=== PATIENT | female | born 1990 | race Caucasian/White ===

== ENCOUNTER 2016-11-15 22:30 | Observation (INO) | payer OTHER ==
[~2016-11-15] VITALS: Ht 165.1 cm; Wt 116.5 kg
[2016-11-15 22:40] VITALS: BP 156/77; PULSE 104; RESP 20; TEMP 97.9; O2SAT 100
[2016-11-15 22:58] VITALS: O2SAT 100
[2016-11-15] MEDS ORDERED: SODIUM CHLORIDE 0.9% FLUSH 5 ML FLUSH IVF PRN (23:00)
[2016-11-15] MEDS ORDERED: ONDANSETRON HCL 4 MG/2 ML VIAL IVP ONE (23:00)
[2016-11-15] MEDS ORDERED: MORPHINE SULFATE 4 MG/ML INJ IV ONE (23:00)
[2016-11-15 23:22] LABS: AUTOMATED NEUTROPHIL # 11.7 TH/MM3 (1.8-7.7); BASOPHIL # 0.1 TH/MM3 (0-0.2); BASOPHIL % 0.8 % (0.0-2.0); EOSINOPHIL # 0.1 TH/MM3 (0-0.4); EOSINOPHIL % 0.5 % (0.0-4.0); HEMATOCRIT 38.1 % (35.0-46.0); HEMO FLAGS DIFF FINAL; LYMPH % 8.8 % (9.0-44.0); LYMPHOCYTE # 1.2 TH/MM3 (1.0-4.8); MEAN CELL VOLUME 82.4 FL (80.0-100.0); MEAN CORPUSCULAR HGB CONC 32.8 % (32.0-36.0); MONO % 6.6 % (0.0-8.0); NEUT % 83.3 % (16.0-70.0); PLATELET COUNT 360 TH/MM3 (150-450); RED BLOOD COUNT 4.63 MIL/MM3 (4.00-5.30); RED CELL DISTRIBUTION WIDTH 14.9 % (11.6-17.2); WHITE BLOOD COUNT 14.1 TH/MM3 (4.0-11.0)
[2016-11-15] MEDS ORDERED: IOHEXOL 350 MG/ML 10 ML VIAL (for RAD DIAG) IV ONE (23:44)
[2016-11-15 23:49] LABS: ANION GAP 10 MEQ/L (5-15)
[2016-11-15 23:52] LABS: ALKALINE PHOSPHATASE 69 U/L (45-117); ALT (GPT) 28 U/L (10-53); AST (GOT) 20 U/L (15-37); BLOOD UREA NITROGEN 10 MG/DL (7-18); CHLORIDE 103 MEQ/L (98-107); GLOMERULAR FILTRATION RATE 68 ML/MIN (>89); POTASSIUM 3.7 MEQ/L (3.5-5.1); SODIUM (NA) 137 MEQ/L (136-145); TOTAL BILIRUBIN ADULT 0.3 MG/DL (0.2-1.0)
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
[2016-11-16] MEDS ORDERED: HYDROmorphone HCL PF 1 MG/ML VIAL IV PUSH ONE (01:15)
[2016-11-16 01:30] VITALS: BP 111/60; PULSE 108; RESP 16; O2SAT 96
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
[2016-11-16] MEDS ORDERED: SODIUM CHLORIDE 0.9% FLUSH 5 ML FLUSH IVF PRN (01:45)
[2016-11-16] MEDS ORDERED: MAGNESIUM HYDROXIDE SUSP 30 ML CUP PO PRN (01:45)
[2016-11-16] MEDS ORDERED: ACETAMINOPHEN 325 MG TAB PO PRN (01:45)
[2016-11-16] MEDS ORDERED: CHLORHEXIDINE GLUCONATE 2 % 1 PACK (2 CLOTHS) TOP PRN (01:45)
[2016-11-16] MEDS ORDERED: KETOROLAC TROMETHAMINE 30 MG/ML (IVP) VIAL IVP SCH (01:45)
[2016-11-16] MEDS ORDERED: MISCELLANEOUS NURSING INFORMATION XX SCH (01:45)
[2016-11-16] MEDS: HYDROmorphone HCL PF 1 MG/ML VIAL IVP PRN ×3 (02:52→16:00)
[2016-11-16] MEDS: ENOXAPARIN SODIUM 30 MG/0.3 ML SYRINGE SQ SCH ×2 (02:53→14:28)
[2016-11-16 03:00] VITALS: BP 125/73; PULSE 106; RESP 16; TEMP 97.8; O2SAT 97
[2016-11-16] MEDS: CHLORHEXIDINE GLUCONATE 2 % 1 PACK (2 CLOTHS) TOP SCH (04:00)
[2016-11-16] MEDS: DIAZEPAM 2 MG TAB PO SCH ×3 (04:41→20:46)
[2016-11-16] MEDS: IBUPROFEN 800 MG TAB PO SCH ×4 (06:00→23:20)
[2016-11-16 08:00] VITALS: BP 121/76; PULSE 92; RESP 19; TEMP 95.7; O2SAT 97
[2016-11-16] MEDS: ONDANSETRON HCL 4 MG/2 ML VIAL IV PRN ×2 (09:19→16:01)
[2016-11-16] MEDS: DOCUSATE SODIUM 100 MG CAP PO SCH ×2 (09:19→20:46)
[2016-11-16] MEDS: FAMOTIDINE 20 MG TAB PO SCH ×2 (09:19→20:47)
[2016-11-16 11:48] LABS: BETA HCG QUANT LESS THAN 1 MIU/ML (0-5)
[2016-11-16 12:00] VITALS: BP 115/85; PULSE 97; RESP 18; TEMP 96; O2SAT 97
--- NOTE | 2016-11-16 12:47 | HHI.PR ---
Subjective Subjective Notes Complaint of left rib and left shoulder pain Reports she was due to see a utility locate technician for episodes of nausea and inability to eat States she had a gallbladder ultrasound as an outpatient and it was negative for stones. Objective Vitals/I&O Vital Signs Date Time Temp Pulse Resp B/P Pulse Ox O2 Delivery O2 Flow Rate FiO2 11/16/16 09:52 20 11/16/16 08:00 95.7 92 121/76 97 11/16/16 01:30 Room Air Labs Laboratory Tests Test 11/15/16 23:05 White Blood Count 14.1 Red Blood Count 4.63 Hemoglobin 12.5 Hematocrit 38.1 Mean Corpuscular Volume 82.4 Mean Corpuscular Hemoglobin 27.0 Mean Corpuscular Hemoglobin 32.8 Concent Red Cell Distribution Width 14.9 Platelet Count 360 Mean Platelet Volume 8.9 Neutrophils (%) (Auto) 83.3 Lymphocytes (%) (Auto) 8.8 Monocytes (%) (Auto) 6.6 Eosinophils (%) (Auto) 0.5 Basophils (%) (Auto) 0.8 Neutrophils # (Auto) 11.7 Lymphocytes # (Auto) 1.2 Monocytes # (Auto) 0.9 Eosinophils # (Auto) 0.1 Basophils # (Auto) 0.1 CBC Comment DIFF FINAL Differential Comment Sodium Level 137 Potassium Level 3.7 Chloride Level 103 Carbon Dioxide Level 24.0 Anion Gap 10 Blood Urea Nitrogen 10 Creatinine 0.98 Estimat Glomerular Filtration 68 Rate Random Glucose 186 Calcium Level 8.1 Total Bilirubin 0.3 Aspartate Amino Transf 20 (AST/SGOT) Alanine Aminotransferase 28 (ALT/SGPT) Alkaline Phosphatase 69 Total Protein 7.3 Albumin 3.7 Human Chorionic Gonadotropin, LESS THAN 1 Quant Ethyl Alcohol Level LESS THAN 3 Radiology Last Impressions Pelvis X-Ray 11/15/162249 Signed Impressions: Service Date/Time: Tuesday, November 15, 2016 23:16 - CONCLUSION: No evidence of recent bone injury. Jeferson Ron MD Head CT 11/15/162249 Signed Impressions: Service Date/Time: Tuesday, November 15, 2016 23:37 - CONCLUSION: Negative noncontrast CT brain. Jeferson Ron MD Chest X-Ray 11/15/162249 Signed Impressions: Service Date/Time: Tuesday, November 15, 2016 23:11 - CONCLUSION: The lungs are clear. Multiple lower lateral left rib fractures. No evidence of pneumothorax. Jeferson Ron MD Chest CT 11/15/162249 Signed Impressions: Service Date/Time: Tuesday, November 15, 2016 23:43 - CONCLUSION: Negative trauma CT thorax. Jeferson Ron MD Cervical Spine CT 11/15/162249 Signed Impressions: Service Date/Time: Tuesday, November 15, 2016 23:37 - CONCLUSION: Negative trauma CT cervical spine. Jeferson Ron MD Abdomen/Pelvis CT 11/15/162249 Signed Impressions: Service Date/Time: Tuesday, November 15, 2016 23:43 - CONCLUSION: Negative trauma CT abdomen/pelvis. Jeferson Ron MD Narrative Exam GENERAL: 25 year old well-nourished, well developed female lying in bed. SKIN: Warm and dry. HEAD: Atraumatic. Normocephalic. EYES: PERRL. ENT: No nasal bleeding or discharge. Mucous membranes pink and moist. NECK: Trachea midline. No JVD. CARDIOVASCULAR: Regular rate and rhythm. RESPIRATORY: No accessory muscle use. Lungs clear and diminished to auscultation. Breath sounds equal bilaterally. GASTROINTESTINAL: Abdomen soft, nondistended painful to palpation in left upper and right upper quadrant. + BS. MUSCULOSKELETAL: Extremities without cyanosis, or edema. No obvious deformities. Left hand ecchymosis, decreased range of motion in left shoulder. NEUROLOGICAL: Awake and alert. Normal speech. A/P Assessment and Plan INJURIES: LEFT rib fx (5,6,7,8,9) PMHx: Asthma, allergies Diet: Low-fat diet Pulm: IS Pain: IV Dilaudid, Roxicodone, Valium, Motrin Activity: OOB ad samantha, PT ordered. GI: Famotidine Bowel: Colace, MOM DVT: Lovenox, SCD Labs and imaging reviewed X-ray to evaluate left shoulder pain. We'll get a HIDA scan on Friday to evaluate her nausea and GI complaints while she is here. LFTs were WNL. Patient will remain in hospital for pain control at this time. Plan of care discussed with patient, her father and mother at bedside. Hailee Yoon Nov 16, 2016 12:47
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
[2016-11-16 16:00] VITALS: BP 115/85; PULSE 97; RESP 18; TEMP 96; O2SAT 97
[2016-11-16 20:00] VITALS: BP 118/66; PULSE 88; RESP 17; TEMP 98.1; O2SAT 97
[2016-11-16] MEDS ORDERED: RESP: ALBUTEROL 2.5 MG/3 ML NEB (SCH) INH (21:15)
[2016-11-16] MEDS: RESP: ALBUTEROL 2.5 MG/3 ML NEB (PRN) INH (22:17)
[2016-11-17] VITALS: BP 110/62; PULSE 94; RESP 16; TEMP 97.4; O2SAT 97
[2016-11-17] MEDS: RESP: ALBUTEROL 2.5 MG/3 ML NEB (PRN) INH ×3 (00:09→21:02)
[2016-11-17] MEDS: ENOXAPARIN SODIUM 30 MG/0.3 ML SYRINGE SQ SCH ×2 (03:32→14:55)
[2016-11-17] MEDS: DIAZEPAM 2 MG TAB PO SCH ×3 (03:32→20:52)
[2016-11-17] MEDS: CHLORHEXIDINE GLUCONATE 2 % 1 PACK (2 CLOTHS) TOP SCH (03:35)
--- NOTE | 2016-11-17 05:37 | RADRPT ---
EXAM DATE/TIME: 11/17/2016 04:24 [facility] COMPARISON: CHEST SINGLE AP, November 15, 2016, 23:11. INDICATIONS : Shortness of breath, possible pulmonary disease. MEDICAL HISTORY : None. SURGICAL HISTORY : None. ENCOUNTER: Subsequent ACUITY: 2 days PAIN SCORE: 10/10 LOCATION: Left chest FINDINGS: A single view of the chest demonstrates the lungs to be symmetrically aerated without evidence of mas s, infiltrate or effusion. No evidence of pneumothorax. The cardiomediastinal contours are unremark able. Stable lower lateral left rib fractures . CONCLUSION: The lungs are clear. Jeferson Ron MD on November 17, 2016 at 5:35 Board Certified Radiologist. This report was verified electronically.
[2016-11-17] MEDS: IBUPROFEN 800 MG TAB PO SCH (06:01)
[2016-11-17 06:56] LABS: AUTOMATED NEUTROPHIL # 4.4 TH/MM3 (1.8-7.7); BASOPHIL % 0.6 % (0.0-2.0); EOSINOPHIL # 0.1 TH/MM3 (0-0.4); EOSINOPHIL % 0.9 % (0.0-4.0); HEMATOCRIT 33.6 % (35.0-46.0); HEMO FLAGS DIFF FINAL; LYMPH % 23.8 % (9.0-44.0); LYMPHOCYTE # 1.6 TH/MM3 (1.0-4.8); MEAN CELL VOLUME 82.7 FL (80.0-100.0); MEAN CORPUSCULAR HEMOGLOBIN 27.5 PG (27.0-34.0); MEAN CORPUSCULAR HGB CONC 33.2 % (32.0-36.0); MONO % 10.7 % (0.0-8.0); PLATELET COUNT 254 TH/MM3 (150-450); RED BLOOD COUNT 4.06 MIL/MM3 (4.00-5.30); RED CELL DISTRIBUTION WIDTH 15.1 % (11.6-17.2); WHITE BLOOD COUNT 6.8 TH/MM3 (4.0-11.0)
[2016-11-17 08:00] VITALS: BP 115/74; PULSE 101; RESP 18; TEMP 96.5; O2SAT 97
[2016-11-17] MEDS: MAGNESIUM HYDROXIDE SUSP 30 ML CUP PO SCH (08:49)
[2016-11-17] MEDS: FAMOTIDINE 20 MG TAB PO SCH ×2 (08:50→20:52)
[2016-11-17] MEDS: DOCUSATE SODIUM 100 MG CAP PO SCH ×2 (08:50→20:52)
[2016-11-17] MEDS ORDERED: INFLUENZA VIRUS VACCINE (QUADRIVALENT) 0.5 ML SYR IM ONE (09:00)
[2016-11-17] MEDS ORDERED: NALOXONE HCL 0.4 MG/ML AMP IV PRN (11:00)
[2016-11-17] MEDS ORDERED: MORPHINE SULFATE 30 MG/30 ML PCA IV SCH (11:00)
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
[2016-11-17 12:00] VITALS: BP 129/69; PULSE 94; RESP 18; TEMP 96.9; O2SAT 98
[2016-11-17] MEDS: KETOROLAC TROMETHAMINE 30 MG/ML (IVP) VIAL IV PUSH SCH ×3 (12:19→23:41)
[2016-11-17] MEDS: LIDOCAINE HCL 5% PATCH TD SCH (12:19)
[2016-11-17] MEDS: DOCUSATE SODIUM 50 MG/SENNA 8.6 MG TAB PO SCH ×2 (12:20→20:52)
[2016-11-17] MEDS: PCA - TOTAL MG MORPHINE DELIVERED PER SHIFT SCH ×2 (14:00→20:54)
[2016-11-17 16:00] VITALS: BP 104/60; PULSE 86; RESP 18; TEMP 98.7; O2SAT 96
[2016-11-17 20:50] VITALS: BP 122/68; PULSE 98; RESP 17; TEMP 97; O2SAT 98
[2016-11-17] MEDS: REMOVE OLD PATCH T-DERMAL SCH (20:53)
[2016-11-18 00:49] VITALS: BP 121/72; PULSE 106; RESP 16; TEMP 98.4; O2SAT 96
[2016-11-18] MEDS: ENOXAPARIN SODIUM 30 MG/0.3 ML SYRINGE SQ SCH ×2 (03:05→16:34)
[2016-11-18] MEDS: CHLORHEXIDINE GLUCONATE 2 % 1 PACK (2 CLOTHS) TOP SCH (03:07)
[2016-11-18] MEDS: DIAZEPAM 2 MG TAB PO SCH ×3 (04:00→21:36)
[2016-11-18 04:54] VITALS: BP 121/72; PULSE 106; RESP 17; TEMP 98.4; O2SAT 96
[2016-11-18] MEDS: PCA - TOTAL MG MORPHINE DELIVERED PER SHIFT SCH ×3 (06:00→22:00)
[2016-11-18] MEDS: KETOROLAC TROMETHAMINE 30 MG/ML (IVP) VIAL IV PUSH SCH ×3 (06:02→18:00)
[2016-11-18 07:55] VITALS: BP 108/59; PULSE 81; RESP 18; TEMP 98.5; O2SAT 95
[2016-11-18] MEDS ORDERED: SINCALIDE 5 MCG/5 ML VIAL IV ONE (12:12)
[2016-11-18] MEDS: MAGNESIUM HYDROXIDE SUSP 30 ML CUP PO SCH (13:33)
[2016-11-18] MEDS: DOCUSATE SODIUM 50 MG/SENNA 8.6 MG TAB PO SCH ×2 (13:33→21:00)
[2016-11-18] MEDS: DOCUSATE SODIUM 100 MG CAP PO SCH ×2 (13:33→21:36)
[2016-11-18] MEDS: FAMOTIDINE 20 MG TAB PO SCH ×2 (13:33→21:36)
[2016-11-18] MEDS: LIDOCAINE HCL 5% PATCH TD SCH (13:35)
--- NOTE | 2016-11-18 13:55 | RADRPT ---
EXAM DATE/TIME: 11/18/2016 11:00 [facility] COMPARISON: No previous studies available for comparison. INDICATIONS : Nausea and vomiting with abdominal pain. DOSE: 4.1 mCi Tc99m Mebrofenin IV MEDICATION: 2.38 mcg Cholecystokinin IV; No symptomatic response. Cholecystokinin was administered by slow infusion over 8 minutes beginning at 60 minutes. MEDICAL HISTORY : Asthma. SURGICAL HISTORY : None. ENCOUNTER: Initial ACUITY: 2 days PAIN SCALE: 4/10 LOCATION: Right upper quadrant TECHNIQUE: Following the intravenous administration of radiotracer, dynamic sequential image were performed with continuous acquisition. Time-activity curves were generated. FINDINGS: HEPATIIC KINETICS: There is prompt uptake of radiotracer in the liver. No focal defects are seen. There is normal rate of washout from the hepatic parenchyma. BILIARY CLEARANCE: Activity is first seen in the extrahepatic biliary system at 15 minutes. There is normal excretion i nto the small bowel. GALLBLADDER: Activity is first seen in the gallbladder at 20 minutes. POST CHOLECYSTOKININ: After Cholecystokinin administration, there no significant emptying of the gallbladder. Common bile duct kinetics are normal and there is no evidence of biliary obstruction. BILIARY ENTERIC REFLUX: None observed. CLINICAL: The patient was asymptomatic after Cholecystokinin administration. CONCLUSION: Biliary dyskinesia with no response of the gallbladder to Kinevac administration. No evidence of common bile duct or cystic duct structure. Beto Garay MD on November 18, 2016 at 13:51 Board Certified Radiologist. This report was verified electronically.
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
[2016-11-18 16:00] VITALS: BP 139/88; PULSE 100; RESP 18; TEMP 96.8; O2SAT 92
[2016-11-18] MEDS ORDERED: LACTULOSE SYRUP 20 GM/30 ML CUP PO ONE (16:00)
[2016-11-18 20:00] VITALS: BP 128/77; PULSE 90; RESP 18; TEMP 97; O2SAT 94
[2016-11-18] MEDS: REMOVE OLD PATCH T-DERMAL SCH (21:00)
[2016-11-19] VITALS: BP 134/77; PULSE 91; RESP 17; TEMP 96.5; O2SAT 94
[2016-11-19] MEDS: KETOROLAC TROMETHAMINE 30 MG/ML (IVP) VIAL IV PUSH SCH ×2 (00:46→05:04)
[2016-11-19] MEDS: CHLORHEXIDINE GLUCONATE 2 % 1 PACK (2 CLOTHS) TOP SCH (04:00)
[2016-11-19] MEDS: ENOXAPARIN SODIUM 30 MG/0.3 ML SYRINGE SQ SCH ×2 (04:59→16:10)
[2016-11-19] MEDS: DIAZEPAM 2 MG TAB PO SCH ×2 (04:59→12:23)
[2016-11-19 08:00] VITALS: BP 111/69; PULSE 95; RESP 18; TEMP 97.6; O2SAT 95
[2016-11-19] MEDS: FAMOTIDINE 20 MG TAB PO SCH (08:25)
[2016-11-19] MEDS: LIDOCAINE HCL 5% PATCH TD SCH (08:25)
[2016-11-19] MEDS: MAGNESIUM HYDROXIDE SUSP 30 ML CUP PO SCH (08:27)
[2016-11-19] MEDS: DOCUSATE SODIUM 50 MG/SENNA 8.6 MG TAB PO SCH (08:28)
[2016-11-19] MEDS: DOCUSATE SODIUM 100 MG CAP PO SCH (08:28)
[2016-11-19 11:38] VITALS: BP 141/80; PULSE 100; RESP 18; TEMP 97; O2SAT 93
[2016-11-19] MEDS ORDERED: ALBU0.08 INH (15:27)
[2016-11-19] MEDS ORDERED: DOCU1CAP39 PO (15:27)
[2016-11-19] MEDS ORDERED: LIDO5DIS35 TD (15:27)
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
[2016-11-19] MEDS ORDERED: OXYC-392 PO (16:05)
== END 2016-11-19 19:05 | disposition home or self-care (01) ==
LOC: NEPC 22:30 → NEDA 11-16 01:09 → INTOOBSV 11-16 01:09 → OBSVTOIN 11-16 01:09 → N06B 11-16 02:29
PROVIDERS: ADMIT Surgery; ATTEND Surgery
DX: S22.42XA Multiple fractures of ribs, left side, initial encounter for closed fracture (principal); R07.89 Other chest pain; M79.642 Pain in left hand; V43.62XA Car passenger injured in collision with other type car in traffic accident, initial encounter; Y92.410 Unspecified street and highway as the place of occurrence of the external cause; J45.909 Unspecified asthma, uncomplicated; K21.9 Gastro-esophageal reflux disease without esophagitis
CPT/HCPCS: 70450; 71010; 71260; 72125; 72170; 73030; 74177; 78227; 80053; 80320; 84702; 84703; 85025; 94150; 94640; 94664; 96374; 96375; 97110; 97116; 97162; 97530; 99285; A9537; G0378; J1170; J1650; J1885; J2270; J2405; J2805; J7613; Q9967